=== PATIENT | female | born 1945 ===

== ENCOUNTER 2020-03-31 11:24 | Emergency (ER) | payer OTHER ==
[~2020-03-31] VITALS: Ht 162.6 cm; Wt 112.0 kg
--- NOTE | 2020-03-31 11:36 | NUR ---
PRESENTS VIA [facility] FOR ABD PAIN WITH N/V/D, COUGH. STOOL AND VOMIT "DARK COLOR" BUT TAKING PEPTO BISMOL ALSO TAKING ASPIRIN/IBPROFEN AND TYLENOL ALSO WITH DRY COUGH, CHANGE IN TASTE/SMELL AND N/V/ABD PAIN PROVIDER TO BEDSIDE-RECTAL EXAM WITH OCCULT POSITIVE
[2020-03-31] MEDS ORDERED: METF500T27 PO (11:46)
[2020-03-31] MEDS ORDERED: HYDR12.517 PO (11:46)
[2020-03-31] MEDS ORDERED: GABA600T7 PO (11:46)
[2020-03-31] MEDS ORDERED: LISI-170 PO (11:56)
[2020-03-31 11:58] LABS: BASOPHILS # (AUTO) 0.01 x10^3/uL (0-0.1); BASOPHILS % (AUTO) 0 % (0-1); EOSINOPHILS % (AUTO) 0 % (1-7); LYMPHOCYTES # (AUTO) 1.08 x10^3/uL (1-3.4); LYMPHOCYTES % (AUTO) 18 % (22-44); MD NO; MEAN CORPUSCULAR HEMOGLOBIN 28.6 pg (27.0-34.8); MEAN CORPUSCULAR HGB CONC 33.4 g/dL (32.4-35.8); MEAN CORPUSCULAR VOLUME 85.6 fL (80-100); MEAN PLATELET VOLUME 8.6 fL (7.4-10.4); MONOCYTES % (AUTO) 8 % (2-9); NEUTROPHILS # (AUTO) 4.33 x10^3/uL (1.8-6.8); NEUTROPHILS % (AUTO) 73 % (42-75); PLATELET COUNT 198 x10^3/uL (130-400); RED BLOOD COUNT 5.12 x10^6/uL (3.82-5.3); RED CELL DISTRIBUTION WIDTH 14.2 % (9.6-15.2)
[2020-03-31] MEDS ORDERED: FERR160T4 PO (12:01)
[2020-03-31] MEDS ORDERED: MULT-53 PO (12:01)
[2020-03-31] MEDS ORDERED: CHOL10003 PO (12:01)
[2020-03-31] MEDS: ONDANSETRON 2MG/ML, 2ML IVPush ONE ×2 (12:02→12:28)
[2020-03-31 12:03] LABS: INTERNATIONAL NORMALIZED RATIO 0.97 (0.93-1.1)
[2020-03-31 12:05] LABS: ALANINE AMINOTRANSFERASE 77 U/L (12-78); ALBUMIN 3.2 g/dL (3.4-5.0); ANION GAP 7 mmol/L (5-15); CALCIUM 9.9 mg/dL (8.5-10.1); CHLORIDE 107 mmol/L (98-107); CREATININE 0.96 mg/dL (0.55-1.02)
[2020-03-31 12:07] LABS: ALKALINE PHOSPHATASE 101 U/L (45-117); BILIRUBIN,TOTAL 0.6 mg/dL (0.2-1.0); TOTAL PROTEIN 7.6 g/dL (6.4-8.2)
[2020-03-31] MEDS ORDERED: ONDANSETRON 2MG/ML, 2ML ONE (12:27)
[2020-03-31] MEDS ORDERED: MORPHINE SULFATE 4 MG/ML, 1ML IVPush PRN ×2 (12:30→15:00)
[2020-03-31] MEDS ORDERED: SODIUM CHLORIDE FLUSH 10ML SYR IVF ONE (12:30)
[2020-03-31] MEDS ORDERED: PANTOPRAZOLE 80 MG in SODIUM CHLORIDE 0.9% 50 ML IVPB ONE (12:30)
[2020-03-31] MEDS ORDERED: PANTOPRAZOLE 80 MG in SODIUM CHLORIDE 0.9% 100 ML IV SCH (12:30)
[2020-03-31 12:31] LABS: MICROSCOPIC AUTO
[2020-03-31] MEDS ORDERED: MORPHINE SULFATE 4 MG/ML, 1ML ONE (13:09)
[2020-03-31] MEDS ORDERED: OMNIPAQUE 350 MG/ML, 150 ML BOTTLE ONE (13:28)
--- NOTE | 2020-03-31 13:29 | NUR ---
Bedside commode given.
[2020-03-31] MEDS ORDERED: CEFTRIAXONE PMX 1GM/50ML 50 ML IV ONE (13:30)
[2020-03-31] MEDS ORDERED: CEFTRIAXONE PMX 1GM/50ML 50 ML ONE (13:33)
[2020-03-31] MEDS ORDERED: METRONIDAZOLE PMX 500MG/100ML 100 ML IV ONE (14:00)
--- NOTE | 2020-03-31 14:13 | NUR ---
COVID SWAB OBTAINED WITH GUIDELINE TECHNIQUE. WALKED TO LAB FOR ANALYSIS
[2020-03-31 14:39] LABS: C-REACTIVE PROTEIN, QUANT 6.4 mg/dL (0.02-0.49)
[2020-03-31] MEDS ORDERED: ONDANSETRON 2MG/ML, 2ML IVPush PRN (15:00)
[2020-03-31] MEDS ORDERED: hydrALAzine 20 MG/ML, 1ML IVPush PRN (15:00)
[2020-03-31] MEDS ORDERED: ACETAMINOPHEN 325 MG TABLET PO PRN (15:00)
[2020-03-31] MEDS ORDERED: LACTATED RINGERS 1,000 ML IV SCH (15:00)
--- NOTE | 2020-03-31 15:20 | NUR ---
REPORT FROM YURI RN, PT IN XRAY AT THIS TIME
[2020-03-31] MEDS ORDERED: ASCORBIC ACID 500 MG TABLET PO SCH (16:00)
[2020-03-31] MEDS ORDERED: MAGNESIUM SULFATE PMX 2GM/50ML 50 ML IV ONE (16:30)
--- NOTE | 2020-03-31 16:32 | NUR ---
REPORT TO SHY AGUIRRE AT [facility], PT TO BE TRANSPORTED @[phone]
[2020-03-31 17:28] VITALS: BP 132/74
--- NOTE | 2020-03-31 17:29 | NUR ---
PT RESTING IN GURNEY WITH FAMILY AT BEDSIDE. NO NEEDS AT THIS TIME, AWAITING TRANSFER TO [facility]
--- NOTE | 2020-03-31 17:55 | NUR ---
REPORT TO [facility]IL AGUIRRE [facility], PT TRANSPORTED VIA GROUND TO [facility]
[2020-03-31] MEDS ORDERED: PANTOPRAZOLE 40 MG IV IVPush SCH (21:00)
[2020-03-31] MEDS ORDERED: DOXYCYCLINE 100MG TABLET PO SCH (21:00)
[2020-03-31] MEDS ORDERED: METRONIDAZOLE PMX 500MG/100ML 100 ML IV SCH (21:00)
[2020-03-31] MEDS ORDERED: GABAPENTIN 300 MG CAPSULE PO SCH (21:00)
[2020-03-31] MEDS ORDERED: MELATONIN 5 MG TABLET PO SCH (21:00)
[2020-03-31] MEDS ORDERED: LISINOPRIL 10 MG TABLET PO SCH (21:00)
[2020-04-01] MEDS ORDERED: ZINC SULFATE 220 MG CAPSULE PO SCH (09:00)
[2020-04-01] MEDS ORDERED: CEFTRIAXONE PMX 1GM/50ML 50 ML IV SCH (09:00)
[2020-04-01] MEDS ORDERED: CHOLECALCIFEROL 1,000 UNIT TABLET PO SCH (09:00)
== END 2020-03-31 18:13 | disposition short-term general hospital (02) ==
LOC: ED 12:52 → UNDOADMIN 13:49 → EDIP 13:49
DX: U07.1 COVID-19 (principal); K57.33 Diverticulitis of large intestine without perforation or abscess with bleeding; K92.1 Melena; J96.00 Acute respiratory failure, unspecified whether with hypoxia or hypercapnia; J18.9 Pneumonia, unspecified organism; R11.2 Nausea with vomiting, unspecified; I45.10 Unspecified right bundle-branch block; R41.0 Disorientation, unspecified; E11.9 Type 2 diabetes mellitus without complications
CPT/HCPCS: 36415; 70450; 71045; 74177; 80053; 80074; 81001; 83615; 83690; 83735; 83880; 84100; 84145; 84443; 85025; 85379; 85610; 85730; 86140; 86850; 86900; 87077; 87086; 87186; 87635; 93005; 96365; 96366; 96375; 99285; C9113; J0696; J2270; J2405; Q9967; 96367